=== PATIENT | female | born 1995 | race Caucasian/White ===

== ENCOUNTER 2017-12-19 11:25 | Emergency (ER) | payer OTHER ==
[2017-12-19 11:47] VITALS: BP 123/77
--- NOTE | 2017-12-19 12:10 | UC ---
Complaint Female HPI - HPI Summary HPI Summary: 22 y/o female presents to the urgent care c/o frequency and burning on urination for the past week. Pt reports she was seen here at the clinic 1 month ago and Dx w/ UTI and BV and Rx Nitrofurantoin PO and Metrogel vaginal cream. She took full course of ABXs and symptoms resolved for a few weeks and now returned. She has a foul smell in her urine w/ mild lower back pain. Pt denies fever, flank pain, vaginal discharge, Hx of STD's, SOB, chest pain, abdominal pain, N/V/D. LMP: 11/29/2017 w/ regular menstrual cycles. - History Of Current Complaint Chief Complaint: UCGU Stated Complaint: BURNING URINATION Time Seen by Provider: 12/19/17 11:52 Hx Obtained From: Patient Hx Last Menstrual Period: 11/29/17 Onset/Duration: Gradual Onset, Lasting Weeks - 1 week, Still Present, Worse Since - 2 days Timing: Intermittent Severity Initially: Mild Severity Currently: Mild Pain Intensity: 1 Pain Scale Used: 0-10 Numeric Character: Burning Aggravating Factor(s): Urination Associated Signs And Symptoms: Positive: Negative. Negative: Fever, Back Pain, Vaginal Discharge, Genital Swelling, Genital Blisters - Risk Factors Ectopic Risk Factor: Negative - Allergies/Home Medications Allergies/Adverse Reactions: Allergies Allergy/AdvReac Type Severity Reaction Status Date / Time No Known Allergies Allergy Verified 12/19/17 11:47 PMH/Surg Hx/FS Hx/Imm Hx Previously Healthy: Yes - Pt denies PMHX - Surgical History Surgical History: None - Family History Known Family History: Positive: Diabetes - Social History Occupation: Student Lives: With Family Alcohol Use: Occasionally Substance Use Type: None Smoking Status (MU): Never Smoked Tobacco - Immunization History Vaccination Up to Date: Yes Review of Systems Constitutional: Negative Skin: Negative Eyes: Negative ENT: Negative Respiratory: Negative Cardiovascular: Negative Gastrointestinal: Negative Genitourinary: Dysuria, Frequency, Urgency Motor: Negative Neurovascular: Negative Musculoskeletal: Negative Neurological: Negative Psychological: Negative Is Patient Immunocompromised?: No All Other Systems Reviewed And Are Negative: Yes Physical Exam - Summary Physical Exam Summary: VITAL SIGNS: Reviewed. GENERAL: Patient is a well developed and nourished female who is sitting comfortable in the examining table. Patient is not in any acute respiratory distress. HEAD AND FACE: No signs of trauma. No ecchymosis, hematomas or skull depressions. No sinus tenderness. EYES: PERRLA, EOMI x 2, No injected conjunctiva, clear watery eyes, no nystagmus. No photophobia. EARS: Hearing grossly intact. Ear canals and tympanic membranes are within normal limits. MOUTH: pharynx with no erythema, no exudates,no palatal petechiae. no B/L tonsillar enlargement Uvula in midline. NECK: Supple, trachea is midline, no lymphadenopathy, no JVD, no carotid bruit, no c-spine tenderness, neck with full ROM. CHEST: Symmetric, no tenderness at palpation LUNGS: Clear to auscultation bilaterally. No wheezing or crackles. CVS: Regular rate and rhythm, S1 and S2 present, no murmurs or gallops appreciated. ABDOMEN: Soft, non-tender. No signs of distention. No rebound no guarding, and no masses palpated. Bowel sounds are normal. BACK:no scoliosis or lesions, non tender to palpation, No B/L CVA tenderness EXTREMITIES: FROM in all major joints, no edema, no cyanosis or clubbing. NEURO: Alert and oriented x 3. No acute neurological deficits. Speech is normal and follows commands. SKIN: Dry and warm Triage Information Reviewed: Yes Vital Signs: Initial Vital Signs Temp 98.4 F 12/19/17 11:43 Pulse 74 12/19/17 11:43 Resp 18 12/19/17 11:43 BP 123/77 12/19/17 11:43 Pulse Ox 99 12/19/17 11:43 Complaint Female Dx - Course Course Of Treatment: 22 y/o female presents to the urgent care c/o frequency and burning on urination for the past week. Pt reports she was seen here at the clinic 1 month ago and Dx w/ UTI and BV and Rx Nitrofurantoin PO and Metrogel vaginal cream. She took full course of ABXs and symptoms resolved for a few weeks and now returned. She has a foul smell in her urine w/ mild lower back pain. Pt denies fever, flank pain, vaginal discharge, Hx of STD's, SOB, chest pain, abdominal pain, N/V/D. LMP: 11/29/2017 w/ regular menstrual cycles. Hx obtained. PE: WNL. UA and test ordered. UA results: , Leukoesterase trace+. test: negative. Pt positive last month for E.coli. Pt's symptoms returned. Pt declined pelvic exam since she denies vaginal discharge. Pt Rx Bactrim PO x 7 days. Pyridium 100mg PO TID x 2 days. Advised to increase fluid intake. Urine sent for culture if any abnormality. Pt will be notified for further treatment. Pt advised If symptoms do not improve to return to the urgent care or f/u with PCP. Pt understood and agreed. - Differential Dx/Diagnosis Differential Diagnosis/HQI/PQRI: Cervicitis, Pelvic Inflammatory Disease, , Renal Colic, Ureteral Stone, Urinary Tract Infection Provider Diagnoses: 1- UTI. 2-Dysuria Discharge - Sign-Out/Discharge Documenting (check all that apply): Patient Departure - D/c home All imaging exams completed and their final reports reviewed: No Studies - Discharge Plan Condition: Stable Disposition: HOME Prescriptions: Phenazopyridine TAB* [Pyridium 100 mg TAB*] 100 mg PO TID #6 tab Sulfamethox/Trimethoprim DS* [Bactrim DS 800/160 TAB*] 1 tab PO BID #14 tab Patient Education Materials: Urinary Tract Infection in Women (ED), Dysuria (ED ) Referrals: [facility] [Outside] - 3 Days Additional Instructions: 1- Please take Bactrim PO x 7 days. Pyridium 100 mg PO TID x 2 days to alleviate urinary symptoms. Increase increase fluid intake. drink cranberry juice. 2-Urine sent for culture if any abnormality, you will be notified for further treatment. 3-If symptoms do not improve please return to the urgent care or f/u with PCP in 3 days for further management. - Billing Disposition and Condition Condition: STABLE Disposition: Home
== END 2017-12-19 12:30 | disposition home or self-care (01) ==
LOC: UCEAST 11:25
DX: N39.0 Urinary tract infection, site not specified (principal); Z87.440 Personal history of urinary (tract) infections
CPT/HCPCS: 81003; 84702; 87077; 87086; 87186; 99212; G0463

== ENCOUNTER 2018-02-23 18:31 | Emergency (ER) | payer OTHER ==
--- NOTE | 2018-02-23 18:37 | UC ---
Dizzy HPI HPI Summary: Started w/ dizziness 4 days ago which she feels worsens when she looks to the L. Nothing makes it better. Denies n/v, recent illness, recent travel. Has never had this before. Was told to lay down and turn her head by a friend which make it much more severe. feels like the world is spinning, not her. It resolves on its own usually. - History Of Current Complaint Chief Complaint: UCDizziness Stated Complaint: DIZZINESS Time Seen by Provider: 02/23/18 18:32 Hx Last Menstrual Period: 11/29/17 Onset/Duration: Gradual Onset Timing: Intermittent Episode Lasting Character: Room Spinning, Dizzy Aggravating Factor(s): Position Change, Change In Head Position Alleviating Factor(s): Rest - Allergies/Home Medications Allergies/Adverse Reactions: Allergies Allergy/AdvReac Type Severity Reaction Status Date / Time No Known Allergies Allergy Verified 02/23/18 18:45 PMH/Surg Hx/FS Hx/Imm Hx Previously Healthy: Yes - Surgical History Surgical History: None - Family History Known Family History: Positive: None, Diabetes - Social History Alcohol Use: Occasionally Substance Use Type: None Smoking Status (MU): Never Smoked Tobacco - Immunization History Vaccination Up to Date: Yes Review of Systems All Other Systems Reviewed And Are Negative: Yes Constitutional: Positive: Negative Skin: Positive: Negative Eyes: Positive: Negative. Negative: Blurred Vision Respiratory: Positive: Negative Cardiovascular: Positive: Negative Gastrointestinal: Positive: Negative Neurovascular: Positive: Negative Neurological: Positive: Other - dizziness. Negative: Headache, Weakness Physical Exam Triage Information Reviewed: Yes Appearance: Well-Appearing Vital Signs Reviewed: Yes ENT: Positive: Pharynx normal, TMs normal Respiratory Exam: Normal Cardiovascular Exam: Normal Dizzy Course/Dx - Course Course Of Treatment: Dizziness .No orthostatic changes. - Differential Dx/Diagnosis Differential Diagnosis/HQI/PQRI: Anxiety, Labyrinthitis, Meniere's Disease, Other Provider Diagnosis: Vertigo Discharge - Sign-Out/Discharge Documenting (check all that apply): Patient Departure All imaging exams completed and their final reports reviewed: No Studies - Discharge Plan Condition: Good Disposition: HOME Patient Education Materials: Vertigo (ED) Forms: *Work Release Referrals: No Primary Care Phys,NOPCP [Primary Care Provider] - [facility] [Outside] Additional Instructions: Please follow up with your pcp if not improving. Your blood pressure was a little elevated, which should also be followed up w/ your pcp. - Billing Disposition and Condition Condition: GOOD Disposition: Home
[2018-02-23 19:02] VITALS: BP 142/71
== END 2018-02-23 19:30 | disposition home or self-care (01) ==
LOC: UCEAST 18:31
DX: R42 Dizziness and giddiness (principal)
CPT/HCPCS: 84702; 99212; G0463